=== PATIENT | female | born 1940 | race African-American/Black ===

== ENCOUNTER 2018-08-22 10:03 | Inpatient (IN) | payer OTHER, MEDICAID ==
[~2018-08-22] VITALS: Ht 160 cm; Wt 63.5 kg
[~2018-08-22 10:03] MED LIST: ALBUTEROL SULFAT3 M3; CARVEDILOL25 M1 PO; CYMBALTA30 M1 PO; GABAPENTIN600 M1 PO; HYDRALAZINE HCL25 MG PO; KAPVAY0.1 MG PO; LANTUS SOLOS100 U/M1; LOSARTAN POTASS25 M1 PO; NIT0.3; NORCO1 TA2 PO; PENTASA250 MG PO; PRA0.5 PO; PREDNISOLO15 MG/5 M1 PO; PRILOSEC OTC20 M1 PO; PROTONIX20 MG PO; SIMVASTATIN20 M1 PO; VERAPAMIL HCL240 MG PO; XARELTO10 M1 PO
[2018-08-22 10:18] VITALS: Ht 160 cm; Wt 63.5 kg
[2018-08-22 11:19] LABS: CARBON DIOXIDE 34.8 mmol/L (21-32); CHLORIDE SERUM 101 mmol/L (98-107); CREATININE SERUM 0.6 mg/dL (0.6-1.0); GLUCOSE SERUM 136 mg/dL (74-106); POTASSIUM SERUM 3.3 mmol/L (3.5-5.1); SODIUM SERUM 142 mmol/L (136-145)
[2018-08-22 11:24] LABS: ALKALINE PHOSPHATASE 87 U/L (46-116); ALT/SGPT 23 U/L (14-59); AST/SGOT 20 U/L (15-37); BILIRUBIN TOTAL 0.4 mg/dL (0.20-1.00); TOTAL PROTEIN, SERUM 6.5 g/dL (6.4-8.2)
[2018-08-22 11:32] LABS: BASOPHIL % 0.1 % (0-2); PLATELET COUNT 234 x10^3mcL (130-400)
[2018-08-22 13:46] LABS: RED CELL DISTRIBUTION WIDTH 17.8 % (11.5-14.5)
[2018-08-22 15:14] LABS: T3 TOTAL 1.04 ng/mL
[2018-08-22 15:16] LABS: CHOLESTEROL/HDL RATIO 2.3; MAGNESIUM 1.5 mg/dL (1.8-2.4); PHOSPHOROUS 2.4 mg/dL (2.5-4.9)
[2018-08-22 15:39] LABS: FREE T4 1.09 ng/dL (0.76-1.46); T4(THYROXINE) 8.2 ug/dL (4.7-13.3)
[2018-08-22 16:15] LABS: UA SPECIFIC GRAVITY <=1.005 (1.005-1.035); microscopic required? YES; urine erythrocyte NEGATIVE (NEGATIVE)
[2018-08-22 16:25] LABS: AMPHETAMINE QUAL UR NONE DETECTED (See below)
[2018-08-22 18:15] VITALS: BP 146/71
[2018-08-22 20:07] VITALS: BP 112/72
[2018-08-23 04:40] LABS: BASOPHIL % 0.4 % (0-2); PLATELET COUNT 209 x10^3mcL (130-400)
[2018-08-23 04:41] LABS: RED CELL DISTRIBUTION WIDTH 18.2 % (11.5-14.5)
[2018-08-23 05:14] VITALS: BP 124/70
[2018-08-23 05:20] LABS: CALCIUM 8.6 mg/dL (8.5-10.1); CHLORIDE SERUM 104 mmol/L (98-107); CREATININE SERUM 0.5 mg/dL (0.6-1.0); GLUCOSE SERUM 89 mg/dL (74-106); MAGNESIUM 1.6 mg/dL (1.8-2.4); PHOSPHOROUS 4.5 mg/dL (2.5-4.9); POTASSIUM SERUM 3.2 mmol/L (3.5-5.1); SODIUM SERUM 142 mmol/L (136-145)
[2018-08-23 12:25] VITALS: BP 111/64
[2018-08-23 17:15] VITALS: BP 136/78
[2018-08-23 19:38] VITALS: BP 136/78
== END 2018-08-23 20:09 | DRG 176 ==
LOC: ED 10:03 → DU 14:19
PROVIDERS: Emergency Medicine; ADMIT General Practice
DX: I26.99 Other pulmonary embolism without acute cor pulmonale (principal); K50.90 Crohn's disease, unspecified, without complications; A04.72 Enterocolitis due to Clostridium difficile, not specified as recurrent; E11.65 Type 2 diabetes mellitus with hyperglycemia; I48.2 Chronic atrial fibrillation; E87.6 Hypokalemia; E83.39 Other disorders of phosphorus metabolism; E83.42 Hypomagnesemia; E78.5 Hyperlipidemia, unspecified; I25.2 Old myocardial infarction; I10 Essential (primary) hypertension; Z68.24 Body mass index [BMI] 24.0-24.9, adult; Z79.4 Long term (current) use of insulin; Z79.01 Long term (current) use of anticoagulants
CPT/HCPCS: 82962; 83880; 84439; 85378; 87046; 87046-59; 97110-GP; 97116-GP; 97530-GP; J1642; J1644; J2405; J7030; J7510; Q0092; Q9967

== ENCOUNTER 2018-11-27 11:27 | Emergency (ER) | payer OTHER, MEDICAID ==
[~2018-11-27] VITALS: Ht 170.2 cm; Wt 81.6 kg
[2018-11-27 11:50] VITALS: Ht 170.2 cm; Wt 81.6 kg
[2018-11-27 12:24] LABS: BASOPHIL % 0.5 % (0-2); CALCIUM 9.3 mg/dL (8.5-10.1); CARBON DIOXIDE 27.7 mmol/L (21-32); CHLORIDE SERUM 107 mmol/L (98-107); CREATININE SERUM 1.1 mg/dL (0.6-1.0); GLUCOSE SERUM 111 mg/dL (74-106); PLATELET COUNT 226 x10^3mcL (130-400); POTASSIUM SERUM 3.5 mmol/L (3.5-5.1); SODIUM SERUM 146 mmol/L (136-145)
[2018-11-27 12:29] LABS: ALKALINE PHOSPHATASE 67 U/L (46-116); ALT/SGPT 19 U/L (14-59); AST/SGOT 9 U/L (15-37); BILIRUBIN TOTAL 0.28 mg/dL (0.20-1.00); TOTAL PROTEIN, SERUM 6.5 g/dL (6.4-8.2)
[2018-11-27 12:36] LABS: RED CELL DISTRIBUTION WIDTH 14.8 % (11.5-14.5)
[2018-11-27 14:14] LABS: UA SPECIFIC GRAVITY >=1.030 (1.005-1.035); microscopic required? YES; urine erythrocyte NEGATIVE (NEGATIVE)
[2018-11-27 15:13] VITALS: BP 104/77
== END 2018-11-27 15:13 | disposition home or self-care (01) ==
LOC: ED 11:27
PROVIDERS: Emergency Medicine
DX: S00.03XA Contusion of scalp, initial encounter (principal); R29.6 Repeated falls; E11.9 Type 2 diabetes mellitus without complications; F32.9 Major depressive disorder, single episode, unspecified; I25.2 Old myocardial infarction; Z88.0 Allergy status to penicillin; Z88.6 Allergy status to analgesic agent; Z88.8 Allergy status to other drugs, medicaments and biological substances; Z88.1 Allergy status to other antibiotic agents; Z88.5 Allergy status to narcotic agent; W01.0XXA Fall on same level from slipping, tripping and stumbling without subsequent striking against object, initial encounter; Y93.89 Activity, other specified; Y92.89 Other specified places as the place of occurrence of the external cause; Y99.9 Unspecified external cause status
CPT/HCPCS: 36415

== ENCOUNTER 2018-12-14 12:13 | Inpatient (IN) | payer OTHER, MEDICAID ==
[~2018-12-14] VITALS: Ht 160 cm; Wt 72.6 kg
[2018-12-14 12:23] VITALS: Ht 160 cm; Wt 72.6 kg
--- NOTE | 2018-12-14 12:30 | NUR ---
[facility] FROM HOME TODAY. PATIENT STS SHE NORMALLY USES A WALKER, FELL TODAY AND INVERTED BOTH ANKLES. STS HAVING BILATERAL ANKLE PAIN THAT RADIATES TO BILATERAL KNEES. STS HAVING BILATERAL SHOULDER DISCOMFORT. PATIENT DENIES LOC. AAOX4, PERRLA, GCS 15, PATIENT ACTING APPROPRIATELY AND ANSWERING ALL QUESTIONS. DR. BUSTILLO AT BEDSIDE PERFORMING MSE
--- NOTE | 2018-12-14 12:48 | NUR ---
XRAY AT BEDSIDE
--- NOTE | 2018-12-14 13:42 | NUR ---
MED PO FOR "12" PAIN.
--- NOTE | 2018-12-14 13:49 | NUR ---
PATIENT RESTING AT BEDSIDE IN NAD. FAMILY AT BEDSIDE
--- NOTE | 2018-12-14 14:46 | NUR ---
PATIENT RESTING AT BEDSIDE. STS 10/10 WHILE SMILING. BREATHING E/U, BILATERAL CHEST RISE, BED AT LOWEST LEVEL. EMT AT BEDSIDE SPLINTING. BREATHING E/U BILATERAL CHEST RISE. BED AT LOWEST LEVEL. CALL LIGHT IN REACH
--- NOTE | 2018-12-14 14:55 | NUR ---
DR BUSTILLO AT BEDSIDE TO SPEAK WITH PT AND FAMILY REGARDING PLAN OF CARE.
--- NOTE | 2018-12-14 15:05 | NUR ---
EMT DEEPA AT BEDSIDE TO PLACE SPLINT.
--- NOTE | 2018-12-14 15:29 | NUR ---
PER DR BUSTILLO, OKAY TO PUT PT ON BEDPAN. PT REPORTS THAT SHE THINKS SHE CAN TOLERATE A BED DE LEON. WILL ATTEMPT ONCE LAB IS FINISHED.
[2018-12-14 15:49] LABS: PLATELET COUNT 242 x10^3mcL (130-400)
[2018-12-14 15:50] LABS: BASOPHIL % 0 % (0-2)
[2018-12-14 15:52] LABS: microscopic required? NO
--- NOTE | 2018-12-14 15:53 | NUR ---
PATIENT RESTING AT BEDSIDE IN NAD
[2018-12-14 15:54] LABS: CALCIUM 9.3 mg/dL (8.5-10.1); CARBON DIOXIDE 27.3 mmol/L (21-32); CHLORIDE SERUM 105 mmol/L (98-107); CREATININE SERUM 0.6 mg/dL (0.6-1.0); GLUCOSE SERUM 147 mg/dL (74-106); POTASSIUM SERUM 4.1 mmol/L (3.5-5.1); SODIUM SERUM 142 mmol/L (136-145)
[2018-12-14 15:57] LABS: PHOSPHOROUS 3.3 mg/dL (2.5-4.9)
[2018-12-14 15:59] LABS: urine erythrocyte NEGATIVE (NEGATIVE)
[2018-12-14 16:11] LABS: CK-MB 0.8 ng/mL (0-3.6)
--- NOTE | 2018-12-14 16:37 | NUR ---
PATIENT RESTING AT BEDSIDE IN NAD. STS SHE WANTS TO EAT. PER MD, GIVE FOOD. PATIENT EATING SANDWICH AND DRINKING WATER.
[2018-12-14] MEDS ORDERED: ULTRAM50 MG (17:37)
[2018-12-14] MEDS ORDERED: ELIQUIS5 M1 (17:38)
[2018-12-14] MEDS ORDERED: PREDNISONE20 MG PO (17:38)
--- NOTE | 2018-12-14 18:55 | NUR ---
REPORT OFF TO JOHN WALTON
--- NOTE | 2018-12-14 19:04 | NUR ---
ASSISTED BAILEY RN WITH PERICARE, FRESH LINENS AND PULL UP GIVEN.
--- NOTE | 2018-12-14 19:13 | NUR ---
RECEIVED PT VIA GUERNEY FROM E/D, ACCOMPANIED BY TRANSPORTER. PT A/A/O X 4, CALM, COOPERATIVE; WEARS GLASSES (W/ PT). DENIES CHEST PAIN OR DISCOMFORT AT THIS TIME. SAUL RADIAL PULSES PRESENT, R PEDAL PULSE WEAK W/ R FOOT +2 PITTING EDEMA, L PEDAL PULSE UNABLE TO BE ASSESSED D/T LLE SPLINT/CATY WRAP; PT ABLE TO WIGGLE ALL TOES W/ ABSENT SENSATION TO LEFT BIG TOE; CAP REFILL < 3 SECS, SCD BY BEDSIDE. NO ACUTE RESPIRATORY DISTRESS NOTED. HAS FULL UPPER DENTURES, WEARS DIAPER AT HOME (PT IS NOT INCONTINENT), POOR PO INTAKE > 3 DAYS. GENERALIZED WEAKNESS, CAME IN W/ L FIBULA FX S/P FALL FROM WALKER, R INVERTED TOE NOTED; PT BEDBOUND AT THIS TIME, FALL RISK PROTOCOL IN PLACE. LA FOR SKIN MANAGEMENT. C/O CONSTANT ACHING TO BLE 8/10, EXACERBATED BY MOVEMENT AND TWISTING, RELIEVED BY REST AND PAIN MEDICATION. IV SITE LFA 22G, CDI. ORIENTED PT TO ROOM, BED CONTROLS, CALL LIGHT SYSTEM. SIDE RAILS UP X 2, BED IN LOW POSITION. WILL ENDORSE TO ISABELLE STEINBERG.
[2018-12-14 19:49] VITALS: BP 165/86
[2018-12-14 21:32] VITALS: BP 142/77
--- NOTE | 2018-12-14 22:55 | NUR ---
PT C/O LLE ACHING PAIN 02/03. MEDICATED WITH TRAMADOL.
--- NOTE | 2018-12-15 00:50 | NUR ---
PT RESTING WITH EYES CLOSED. NO SOB ON ROOM AIR. NO DISTRESS NOTED. CALL LIGHT WITHIN REACH. WILL CONTINUE TO MONITOR.
--- NOTE | 2018-12-15 05:01 | NUR ---
PT SLEPT AT INTERVALS THROUGHOUT SHIFT. NO SOB ON ROOM AIR. BREATHING EVEN AND UNLABORED. NO DISTRESS NOTED. LLE WITH SPLINT AND CATY WRAPPED. CAP REFILL <3 SEC. ABLE TO WIGGLE TOES. SAFETY MEASURES MAINTAINED. ALL NEEDS ATTENDED TO. CALL LIGHT WITHIN REACH. WILL ENDORSE CONTINUITY OF CARE TO DAY SHIFT RN.
[2018-12-15 05:37] VITALS: BP 114/65
[2018-12-15 06:35] LABS: BASOPHIL % 0.4 % (0-2); PLATELET COUNT 231 x10^3mcL (130-400)
[2018-12-15 06:39] LABS: CALCIUM 8.6 mg/dL (8.5-10.1); CARBON DIOXIDE 27.7 mmol/L (21-32); CHLORIDE SERUM 108 mmol/L (98-107); CREATININE SERUM 0.6 mg/dL (0.6-1.0); GLUCOSE SERUM 109 mg/dL (74-106); POTASSIUM SERUM 3.2 mmol/L (3.5-5.1); RED CELL DISTRIBUTION WIDTH 15.3 % (11.5-14.5); SODIUM SERUM 145 mmol/L (136-145); URIC ACID 3.6 mg/dL (2.6-6.0)
--- NOTE | 2018-12-15 08:59 | NUR ---
REPOSITION PATIENT UP FOR MEDS, PPATIENT QUESTION WHY SHE NOT GETTING HER PREDNISONE AND ELIQUIS INFORM PATIENT IS NOT CONT BY DOCTOR, WILL ASK DOCTOR DURING ROUND, PATIENT GOT UPSET WITH NURSE AND REFUSED SOME OF MEDS, ZOLPIDEM CLONIDINE, AND COLACE. NEED MET. ULTRAM 50MG PO GIVEN FOR LEGS PAIN.
[2018-12-15 09:06] VITALS: BP 142/66
--- NOTE | 2018-12-15 12:10 | NUR ---
PATIENT RESTING IN BED WITH EYES CLOSE, AWAKEN EASILY. BS 126 NO COVERAGE NEEDED. FAMILY MEMBER AT BEDSIDE. CALL LIGHT WITHIN REACH.
--- NOTE | 2018-12-15 13:37 | NUR ---
PER DR. BAILON NO SURGICAL INTERVENTION, REOVED LLE SPLINT AND REPLACE WITH KNEE IMMOBILIZER ORDERED. PT TX WEIGHT BEARING TOLERATED.
--- NOTE | 2018-12-15 13:50 | NUR ---
PATIENT C/O 01/03 LLE PAIN AFTER REMOVED SPLINT, TORADOL 1 TAB PO ADMINISTERED. FAMILY MEMBER REMAIN AT BEDSIDE.
[2018-12-15 16:46] VITALS: BP 114/60
--- NOTE | 2018-12-15 17:10 | NUR ---
PATIENT RESTING IN BED AWAKE/ALERT NO DISTRESS NOTED, ADMINISTERED REGULAR 3 UNITS SQ FOR BS 165. PATIENT ASKING FOR ULTRAM INFORM PATIENT IS NOT DUE ORDER Q12H PER PATIENT TAKE AT HOME Q6H WILL GET DOCTOR TO SCHEDULE FREQUENCY. STUDENT KARINA AT BEDSIDE GAVE DM DIET TEACHING TO PATIENT. CALL LIGHT WITHIN REACH.
--- NOTE | 2018-12-15 17:58 | NUR ---
PATIENT RESTING IN BED MEDICATE WITH ULTRAM 50MG PO ORDERED, 01/03 BLE PAIN. NEEDS MET. CALL LIGHT IN REACH.
--- NOTE | 2018-12-15 18:44 | NUR ---
PATIENT LAYING IN BED REPORT PAIN IS NOT RELIEVED. ASKING FOR NEURONTIN INFORM PATIENT NOT DUE YET PER PATIENT TAKE 600MG PO TID. WILL CHECK WITH DOCTOR.
--- NOTE | 2018-12-15 19:30 | NUR ---
RECEIVED PT FROM DAY SHIFT RN. PT AAOX3. PT DENIES CHEST PAIN/PRESSURE. PT BREATHING EVEN AND UNLABROED ON RA, WITH NO SOB NOTED. MED SURG PT. PT DENIES CHEST PAIN/PRESSURE. IV PATENT, SL. ABD SOFT/ROUND, ACTIVE BOWEL SOUNDS. DENIES ABD PAIN/N/V. PT LEFT LEF COVERED WITH DRESSING, PILLOW IN PLACE. PT DENIES ANY DISTRESS. CALL BUTTON WITHIN REACH. SAFETY PRECAUTIONS IN PLACE. WILL CONTINUE TO MONITOR.
[2018-12-15 21:25] VITALS: BP 107/60
--- NOTE | 2018-12-15 22:07 | NUR ---
PT REPORTED HAVING LEG PAIN /. MEDICATED PER EMAR. CALL BUTTON WITHIN REACH. SAFETY PRECAUTIONS IN PLACE. WILL CONTINUE TO MONITOR.
--- NOTE | 2018-12-15 23:43 | NUR ---
PT REPORTED HAVING LEG PAIN /. MEDICATED PER EMAR. CALL BUTTON WITHIN REACH. SAFETY PRECAUTIONS IN PLACE. WILL CONITNUE TO MONITOR.
--- NOTE | 2018-12-16 00:48 | NUR ---
PRESCHOOL TEACHER AIDE AT BEDSIDE ASSISTING PT TO CHANGE AND REPOSITIONED AT THIS TIME.
--- NOTE | 2018-12-16 01:00 | NUR ---
PT CONTINUE TO REPORT PAIN AND UNABLE TO SLEEP. DR KAT MADE AWARE. AWAITING NEW ORDER.
--- NOTE | 2018-12-16 01:34 | NUR ---
PER PT SHE HAS TAKEN NORCO BEFORE WITHOUT ANY REACTIONS. MEDICATED PER EMAR. CALL BUTTON WITHIN REACH. SAFETY PRECAUTIONS IN PLACE. WILL CONTINUE TO MONITOR.
--- NOTE | 2018-12-16 03:37 | NUR ---
ROUNDS MADE. PT RESTING, BREATHING EVEN AND UNLABORED WITH NO SIGNS OF DISTRESS NOTED. CALL BUTTON WITHIN REACH. SAFETY PRECAUTIONS IN PLACE. WILL CONTINUE TO MONITOR.
[2018-12-16 05:44] VITALS: BP 126/67
--- NOTE | 2018-12-16 06:29 | NUR ---
PT SLEPT ON AND OFF THROUGHOUT THE NIGHT WITH NO SIGNS OF DISTRESS. IV PATENT. PT REPORTED LEG PAIN ON AND OFF. MEDICATED PER EMAR WITH RELIEF. NO SIGNS OF ACUTE DISTRESS NOTED. CALL BUTTON WITHIN REACH. SAFETY PRECAUTIONS IN PLACE. WILL CONTINUE TO MONITOR AND ENDORSE CARE TO DAY SHIFT RN.
[2018-12-16 06:49] LABS: PLATELET COUNT 202 x10^3mcL (130-400)
[2018-12-16 07:03] LABS: CALCIUM 8.9 mg/dL (8.5-10.1); CARBON DIOXIDE 30.4 mmol/L (21-32); CHLORIDE SERUM 107 mmol/L (98-107); CREATININE SERUM 0.6 mg/dL (0.6-1.0); GLUCOSE SERUM 96 mg/dL (74-106); POTASSIUM SERUM 3.4 mmol/L (3.5-5.1); SODIUM SERUM 144 mmol/L (136-145)
[2018-12-16 07:29] LABS: BASOPHIL % 0 % (0-2); RED CELL DISTRIBUTION WIDTH 14.9 % (11.5-14.5)
--- NOTE | 2018-12-16 07:36 | NUR ---
NO SIGNS OF DISTRESS NOTED. ENDORSED CARE TO DAY SHIFT RN, ALL QUESTIONS ADDRESSED.
[2018-12-16 09:10] VITALS: BP 138/88
--- NOTE | 2018-12-16 10:26 | NUR ---
PATIENT RESTING IN BED MOANING C/O LLE PAIN 8/10, ULTRAM 1 TAB PO AND ALL PO MEDS ADMINISTERED. ASKING PT TO ASSIST PATIENT TO GET UP AT SIDE OF BED PER PATIENT REQUEST. DR. PALOMO ROUND WAS INFORM US VENOUS BLE ORDER BUT PER TECH UNABLE TO PERFORM LLE DUE TO DRESSING AND FRACTURE. NO NEW ORDER. [facility]
--- NOTE | 2018-12-16 11:47 | NUR ---
PATIENT RESTING IN BED REPORT PAIN IS BETTER W/O MOVEMENT. BS 164 GAVE 3UNITS REGULAR SQ. NEEDS MET. CALL LIGHT IN REACH.
--- NOTE | 2018-12-16 13:02 | NUR ---
REPOSITION PATIENT UP IN BED FOR LUNCH, NEURONTIN PO ADMINISTERED. NEEDS MET. CALL LIGHT WITHIN REACH.
--- NOTE | 2018-12-16 14:50 | NUR ---
Initial Nutrition Assessment: 217/B [facility] IA HR Dx: generalized weakness, L fibula fracture PMHx: DM, HTN, HLD, pancreatic cysts, DVT, PE, depression, crohns disease PSHx: not documented Labs: K 3.4L Meds: Colace, D50%, humulin, D 50%, Lipitor, Tylenol, ultram, zofran Diet: CCHO PO Intake: (12/16) breakfast 90%, (12/15) breakfast 100% Ht: 160.02cm (63") Wt: 72.5 kg (159#) BMI: 28.3 kg/m2 Bed scale: 79 kg IBW: 115# (52 kg) %IBW: 138 UBW: 160# Age: 77/F Food Allergies: NKFA Skin: intact Froilan: 12 Edema: trace BLE GI: Last BM: 12/14 Trigger: poor PO >3d Per H&P, Pt is a 77 year old female with sulfa drug allergies and PMH of DM, HTN, HLD, pancreatic cysts, DVT, PE, depression, Crohn's disease came to the hospital after "her legs gave out" on the day of admission. RDN Visit (12/16): Patient was alert and oriented but was c/o neck pain. Patient said that her appetite is poor. Per progress note (12/16) Patient had increased pain overnight and required [place] 7.5 x1. Orthopaedic surgery recommends no surgery and patient to be WBAT in knee immobilizer. Problem with: N/V/D/C: mild constipation Problems with: Chewing/Swallowing: none Current appetite: poor Recent wt change: none %wt change: N/A Vitamin/Supplement use: none Special diet at home: regular Physical activity: sedentary, currently having fracture L leg Nutrition education given: Diabetes diet education was provided. Concepts like high fiber diet, label reading, types of carbohydrates and portion control were discussed. Patient verbalized understanding and did not have any questions at this time. Food-drug interactions: Colace- high fiber w/1809-4352 ml fluids Education given: yes Estimated Nutritional Needs Based on ideal body weight 52 kg Energy: 1441-6076 kcal/d (25-30 kcal/kg) Protein: 52-62 g/d (1.0-1.2 g/kg)- preserve LBM Fluid: 0076-0525 ml/d (1 ml/kcal) or per doctor Nutrition Diagnosis 1. Increased protein needs related to increased metabolic demands as evidenced by fracture. Intervention 1. Recommend continuing CCHO diet. Monitor/Evaluate Goal: PO intake at least 75% of estimated needs Monitor: PO intake, Labs, GI function F/U in 3-5 days moderate as risk 12/19-
--- NOTE | 2018-12-16 14:50 | NUR ---
1. Recommend continuing [facility] diet.
--- NOTE | 2018-12-16 15:48 | NUR ---
FRONT OFFICE ADMINISTRATOR PROVIDE ROBERT CARE FOR INCONT OF BM. PATIENT ABLE TO TURN FROM SIDE TO SIDE INDEPENDENT, PAIN IS TOLERATED. LLE WITH IMMOBILIER IN PLACE AND ELEVATED ON PILLOW. CONT TO MONITOR.
--- NOTE | 2018-12-16 17:22 | NUR ---
PATIENT RESTING IN BED NO DISTRESS NOTED. BS 267 GAVE 9 UNITS SQ AND ULTRAM 50MG PO GIVEN. NEEDS MET. CALL LIGHT WITHIN REACH.
[2018-12-16 17:25] VITALS: BP 117/65
--- NOTE | 2018-12-16 18:42 | NUR ---
PATIENT RESTING COMFORTABLE IN BED NO NEEDS AT THIS TIME. CALL LIGHT WITHIN REACH.
--- NOTE | 2018-12-16 18:54 | NUR ---
PATIENT COMPLAIN RT KNEE PAIN AND RN ASSESS NOTED SOFT LUMP WILL REPORT TO ON-COMING NURSE TO NOTIFIED ON-COMING DOCTOR.
--- NOTE | 2018-12-16 19:50 | NUR ---
PT IS A/O X4. PT IS MED SURG NO CHEST PAIN OR SOB AT THIS TIME. PT PULSES ARE PALPABLE TO BUE, WEAK PULSES TO RLE. NO EDEMA NOTED. PT HAS CLEAR LUNG SOUNDS BILATERALLY ON RA. BREATHE SOUNDS ARE EVEN AND UNLABRED. PT HAS ACTIVE BOWEL SOUNDS, LAST BM 12/16. PT VOIDS ON BED DE LEON. PT HAS L FIBULA FRACTURE, WITH DRESSING ENFORCED, ON IMMOBOLIZER. PT HAS R DROP FOOT. PT IS BED BPUND. PT OF NO PAIN AT THIS TIME. PT IS IV TO LFA CDI. WILL CONT TO MONITOR. CALL LIGHT WITHIN REACH.
[2018-12-16 20:31] VITALS: BP 117/67
--- NOTE | 2018-12-16 21:50 | NUR ---
MD TRUJILLO MADE AWARE OF SOFT LUMP ON R KNEE. STATES HE WILL EXAMINE SITE.WILL CONT TO MONITOR.
--- NOTE | 2018-12-17 00:15 | NUR ---
PT ASLEEP IN ROOM. BREATHING EVEN AND UNLABORED. NO RESP DISTRESS NOTED. PT EASILY AROUSABLE TO VERBAL STIMULI. BED IN LOWEST POSITION. LEFT LEG ELVATED ON PILLOW WITH IMMOBOLIZER. NO S/S OF PAIN NOTED. WILL CONT TO MONITOR. CALL LIGHT WITHIN REACH.
--- NOTE | 2018-12-17 05:41 | NUR ---
PT SLEPT THROUGHT THE NIGHT. PT BREATHE SOUNDS EVEN AND UNLABORED. NO RESP DISTRESS NOTED. FALL PERCAUTIONS IN PLACE, BED IN LOWEST POSITION. PT LLE REMAINS IN IMMBOLIZER, DRESSING INTACT LEG ELEVATED ON PILLOW. PT REPOSTIONED NEEDED. PT IV TO LFA CDI. NO ACUTE CHANGES DURING NIGHT. PT WAS COOPERATIVE WITH NURSING CARE. PT DENIES PAIN AT THIS TIME. WILL ENDORSE CARE TO DAY SHIFT NURSE. WILL CONT TO MONITOR.
[2018-12-17 05:52] VITALS: BP 126/82
[2018-12-17 07:24] LABS: BASOPHIL % 0.5 % (0-2); PLATELET COUNT 199 x10^3mcL (130-400)
[2018-12-17 07:30] LABS: RED CELL DISTRIBUTION WIDTH 15.2 % (11.5-14.5)
[2018-12-17 07:34] LABS: CARBON DIOXIDE 27.7 mmol/L (21-32); CHLORIDE SERUM 108 mmol/L (98-107); CREATININE SERUM 0.7 mg/dL (0.6-1.0); GLUCOSE SERUM 102 mg/dL (74-106); POTASSIUM SERUM 4.8 mmol/L (3.5-5.1); SODIUM SERUM 144 mmol/L (136-145)
--- NOTE | 2018-12-17 08:00 | NUR ---
RECEIVED PATIENT AWAKE WITH BRACE TO THE LEFT LEG INTACT AND HAS MODERATE PAIN AT THIS TIME. SHE WAS GIEN HER ULTRAM AND HER REGULAR MEDICATIONS AND SHE HAS TOELRATE DWELL AT THIST LUIGI. SHE IS ON PREDNISONE PRIOR AND HAS A HISTORY DIABETES, DEPRESSON AND HTN, PE AND CHROHNS DISEASE. PATEINT MARGARITA NOTED IV TO THE LFT FOREARM AND YAN HUNTLEY BEEN ON BEDREST AND HAS OCCASIONAL STRESS INCONTINENCE AND HAS DIAPERS FROM HOME AT BEDSIDE. PATEINT INOCENCIA BEEN ON ELAQUIS PREVIOUSLY AND WITH NOTED LABS WITH POTASSIUM AT 3.2, AND CHLORIDE AT 108. PATIENT S VITALS AT THIS TIME AT 97.6, 91, 218, 151/70, 99%. SHE DENIES NAUSEA AT THIS TIME OR ANY ACUTE PAIN. TOLERATED THE DIET OFFERED AND WILL MONITOR FOR ANY PAIN OR SWELLIGN T HTE EXTERMITY INDICATED. WAS SEEN BY DR BAILON AND NO ORDERS FOR SURGERY AT THIS TIME. PLAN OF CARE IS POSSIBLE SENDING TO [facility] FOR FURTHER REHAB.
[2018-12-17 09:10] VITALS: BP 151/70
[2018-12-17 10:29] VITALS: BP 151/70
--- NOTE | 2018-12-17 10:45 | NUR ---
RECIEVED ORDERS AND SPOKE WITH THE DISCHARGE STAFF AND PATIENT IS FOR DISCHARGE BACK TO [facility] AND DAUGHTER IS AGREEABLE FOR THIS. PATIENT HAS BEEN COMFORTABLE SO FAR AND WILL COMPLETE THE PACKET INDICATED. NO ORDER FOR IV AT THIS TIME.
--- NOTE | 2018-12-17 11:30 | NUR ---
CALLED IN REPORT FOR THE PATEITN TO [facility] INDICATED AND THEY ARE EXPECTING SOON. PATIENT IS AGREEABLE FOR TRANFER.
--- NOTE | 2018-12-17 13:50 | NUR ---
DISCHARGED TO [facility] ORDERED AND WITH ALL BELONGINGS AND IV REMOVED INDICATED.
== END 2018-12-17 13:38 | DRG 562 ==
LOC: ED 12:13 → MU 18:06
PROVIDERS: Emergency Medicine; General Practice; ADMIT Internal Medicine
DX: S82.832A Other fracture of upper and lower end of left fibula, initial encounter for closed fracture (principal); N17.0 Acute kidney failure with tubular necrosis; K50.90 Crohn's disease, unspecified, without complications; E11.9 Type 2 diabetes mellitus without complications; I10 Essential (primary) hypertension; E78.5 Hyperlipidemia, unspecified; F32.9 Major depressive disorder, single episode, unspecified; W18.39XA Other fall on same level, initial encounter; Y93.89 Activity, other specified; Y92.89 Other specified places as the place of occurrence of the external cause; I25.2 Old myocardial infarction; Z79.4 Long term (current) use of insulin; Z68.28 Body mass index [BMI] 28.0-28.9, adult; Z86.711 Personal history of pulmonary embolism; Z79.01 Long term (current) use of anticoagulants; Z86.718 Personal history of other venous thrombosis and embolism
CPT/HCPCS: 82962; 83880; 97110-GP; 97530-GP; G0378; J7510; Q0092

== ENCOUNTER → 2019-07-06 | Outpatient (CLI) | payer OTHER ==
[~2019-07-06] MED LIST changes: +ELIQUIS5 M1; +PREDNISONE20 MG PO; +ULTRAM50 MG
== END | disposition home or self-care (01) ==
LOC: MI 09:00
PROC: BW30ZZZ Magnetic Resonance Imaging (MRI) of Abdomen (ICD-10-PCS; principal; 2019-07-06)
DX: K50.10 Crohn's disease of large intestine without complications (principal); K80.00 Calculus of gallbladder with acute cholecystitis without obstruction; R10.84 Generalized abdominal pain; R63.4 Abnormal weight loss
CPT/HCPCS: 74181

== ENCOUNTER 2019-07-30 08:40 | Emergency (ER) | payer OTHER ==
[~2019-07-30] VITALS: Ht 160 cm; Wt 74.8 kg
[2019-07-30 08:43] VITALS: Ht 160 cm; Wt 74.8 kg
[2019-07-30 10:04] VITALS: BP 143/75
== END 2019-07-30 10:04 | disposition home or self-care (01) ==
LOC: ED 08:40
DX: S46.912A Strain of unspecified muscle, fascia and tendon at shoulder and upper arm level, left arm, initial encounter (principal); E11.9 Type 2 diabetes mellitus without complications; E78.5 Hyperlipidemia, unspecified; Z88.0 Allergy status to penicillin; Z88.1 Allergy status to other antibiotic agents; Z88.5 Allergy status to narcotic agent; Z88.6 Allergy status to analgesic agent; X50.1XXA Overexertion from prolonged static or awkward postures, initial encounter; Y93.89 Activity, other specified; Y92.810 Car as the place of occurrence of the external cause; Y99.8 Other external cause status
CPT/HCPCS: Q0092

== ENCOUNTER → 2020-01-19 | Outpatient (CLI) | payer OTHER | END | disposition home or self-care (01) | LOC: US 01-11 09:00 | PROC: BW40ZZZ Ultrasonography of Abdomen (ICD-10-PCS; principal; 2020-01-19) | DX: K86.2 Cyst of pancreas (principal) ==

== ENCOUNTER 2020-04-05 11:45 | Emergency (ER) | payer OTHER ==
[~2020-04-05] VITALS: Ht 160 cm; Wt 77.1 kg
[2020-04-05 11:58] VITALS: Ht 160 cm; Wt 77.1 kg
[2020-04-05 12:41] LABS: BASOPHIL % 0.2 % (0-2); PLATELET COUNT 217 x10^3mcL (130-400)
[2020-04-05 12:50] LABS: CALCIUM 8.8 mg/dL (8.5-10.1); CARBON DIOXIDE 27.9 mmol/L (21-32); CHLORIDE SERUM 100 mmol/L (98-107); CREATININE SERUM 0.9 mg/dL (0.6-1.0); GLUCOSE SERUM 207 mg/dL (74-106); POTASSIUM SERUM 4.2 mmol/L (3.5-5.1); SODIUM SERUM 137 mmol/L (136-145)
[2020-04-05 12:54] LABS: ALKALINE PHOSPHATASE 60 U/L (46-116); ALT/SGPT 24 U/L (14-59); AST/SGOT 26 U/L (15-37); BILIRUBIN TOTAL 0.43 mg/dL (0.20-1.00); TOTAL PROTEIN, SERUM 6.8 g/dL (6.4-8.2)
[2020-04-05 13:03] LABS: RED CELL DISTRIBUTION WIDTH 15.4 % (11.5-14.5)
[2020-04-05 14:32] LABS: UA SPECIFIC GRAVITY <=1.005 (1.005-1.035); microscopic required? YES; urine erythrocyte NEGATIVE (NEGATIVE)
[2020-04-05 17:00] VITALS: BP 129/65
== END 2020-04-05 17:00 | disposition home or self-care (01) ==
LOC: ED 11:45
PROVIDERS: Emergency Medicine
DX: I95.9 Hypotension, unspecified (principal); N39.0 Urinary tract infection, site not specified; D72.829 Elevated white blood cell count, unspecified; R74.8 Abnormal levels of other serum enzymes; I10 Essential (primary) hypertension; E11.9 Type 2 diabetes mellitus without complications; E78.5 Hyperlipidemia, unspecified; Z90.49 Acquired absence of other specified parts of digestive tract; Z88.5 Allergy status to narcotic agent; Z88.1 Allergy status to other antibiotic agents; Z88.0 Allergy status to penicillin; Z88.6 Allergy status to analgesic agent; Z20.828 Contact with and (suspected) exposure to other viral communicable diseases
CPT/HCPCS: 83880

== ENCOUNTER 2020-04-21 18:24 | Emergency (ER) | payer OTHER ==
[~2020-04-21] VITALS: Ht 160 cm; Wt 79.8 kg
[2020-04-21 18:26] VITALS: Ht 160 cm; Wt 79.8 kg
[2020-04-21 19:10] LABS: CALCIUM 8.4 mg/dL (8.5-10.1); CARBON DIOXIDE 30.1 mmol/L (21-32); CHLORIDE SERUM 105 mmol/L (98-107); GLUCOSE SERUM 204 mg/dL (74-106); POTASSIUM SERUM 3.6 mmol/L (3.5-5.1); SODIUM SERUM 142 mmol/L (136-145)
[2020-04-21 19:12] LABS: BASOPHIL % 0.2 % (0-2); PLATELET COUNT 205 x10^3mcL (130-400); RED CELL DISTRIBUTION WIDTH 15.9 % (11.5-14.5)
[2020-04-21 19:16] LABS: ALKALINE PHOSPHATASE 59 U/L (46-116); ALT/SGPT 33 U/L (14-59); AST/SGOT 23 U/L (15-37); BILIRUBIN TOTAL 0.57 mg/dL (0.20-1.00); TOTAL PROTEIN, SERUM 6.5 g/dL (6.4-8.2)
[2020-04-21 20:05] LABS: UA SPECIFIC GRAVITY 1.015 (1.005-1.035); microscopic required? YES; urine erythrocyte NEGATIVE (NEGATIVE)
[2020-04-21 21:00] VITALS: BP 107/63
== END 2020-04-21 21:00 | disposition home or self-care (01) ==
LOC: ED 18:24
PROVIDERS: Student in an Organized Health Care Education/Training Program
DX: R55 Syncope and collapse (principal); R10.9 Unspecified abdominal pain; J44.9 Chronic obstructive pulmonary disease, unspecified; I10 Essential (primary) hypertension; E11.9 Type 2 diabetes mellitus without complications; E78.5 Hyperlipidemia, unspecified; Z88.0 Allergy status to penicillin; Z88.1 Allergy status to other antibiotic agents; Z88.5 Allergy status to narcotic agent; Z88.6 Allergy status to analgesic agent; Z20.828 Contact with and (suspected) exposure to other viral communicable diseases
CPT/HCPCS: 82962; 83880